=== PATIENT | male | born 1960 | race Caucasian/White ===

== ENCOUNTER 2017-09-28 17:15 | Inpatient (IN) | payer MEDICARE, MEDICAID ==
[~2017-09-28] VITALS: Ht 180.3 cm; Wt 189.6 kg
[2017-09-28 22:08] VITALS: BP 100/64
[2017-09-28 23:12] VITALS: BP 99/52
[2017-09-28] MEDS ORDERED: LEVOFLOXACIN750 MG ORAL (23:23)
[2017-09-28] MEDS ORDERED: COLACE100 MG ORAL (23:23)
[2017-09-28] MEDS ORDERED: FLUCONAZOLE100 MG ORAL (23:23)
[2017-09-28] MEDS ORDERED: RISPERDAL3 MG PO (23:23)
[2017-09-28] MEDS ORDERED: RESTORIL15 MG ORAL (23:23)
[2017-09-28] MEDS ORDERED: CARDIZEM CD240 MG ORAL (23:23)
[2017-09-28] MEDS ORDERED: PROZAC20 MG ORAL (23:23)
[2017-09-28] MEDS ORDERED: MOM30 ML ORAL (23:23)
[2017-09-28] MEDS ORDERED: ELIQUIS5 MG PO (23:23)
[2017-09-28] MEDS ORDERED: TAMSULOSIN HCL0.4 MG ORAL (23:23)
[2017-09-28] MEDS ORDERED: NITROGLYCERIN0.4 MG SL ×2 (23:23)
[2017-09-28] MEDS ORDERED: FENOFIBRATE43 MG ORAL (23:23)
[2017-09-28] MEDS ORDERED: DIGOXIN125 MCG ORAL (23:23)
[2017-09-28] MEDS ORDERED: ACETAMINOPHEN500 M7 PO ×2 (23:23)
[2017-09-28] MEDS ORDERED: ACIDOPHILUS1 EAC7 PO (23:23)
[2017-09-28] MEDS ORDERED: ATIVAN1 MG ORAL (23:23)
[2017-09-28] MEDS ORDERED: LEVOTHYROXINE125 MCG ORAL (23:23)
[2017-09-28] MEDS ORDERED: METRONIDAZOLE500 MG ORAL (23:23)
[2017-09-28] MEDS ORDERED: MYLANTA30 M1 ORAL (23:23)
[2017-09-28] MEDS ORDERED: MULTIVITAMINS1 EAC2 ORAL (23:23)
[2017-09-28] MEDS ORDERED: Milk of Magnesia 30ml Ud ORAL PRN (23:45)
[2017-09-28] MEDS ORDERED: Nitroglycerin Subl 0.4mg tab SL PRN (23:45)
[2017-09-29 00:39] LABS: BASOPHILS % (AUTO) 1.6 % (0.0-2.0); EOSINOPHILS % (AUTO) 6.7 % (0.0-3.0); LYMPHOCYTES % (AUTO) 43.4 % (20.0-45.0); MEAN CORPUSCULAR HEMOGLOBIN 29.5 PG (27.0-31.0); MEAN CORPUSCULAR HGB CONC 30.9 G/DL (32.0-36.0); MEAN CORPUSCULAR VOLUME 95 FL (80-99); MEAN PLATELET VOLUME 5.4 FL (6.5-10.1); MONOCYTES % (AUTO) 9.8 % (1.0-10.0); NEUTROPHILS % (AUTO) 38.6 % (45.0-75.0); PLATELET COUNT 130 K/UL (150-450); RED BLOOD COUNT 4.91 M/UL (4.70-6.10); RED CELL DISTRIBUTION WIDTH 12.9 % (11.6-14.8); WHITE BLOOD COUNT 5.9 K/UL (4.8-10.8)
[2017-09-29 00:40] LABS: ANION GAP 3 mmol/L (5-15); CALCIUM 8.7 MG/DL (8.5-10.1); CARBON DIOXIDE 30 MMOL/L (21-32); CHLORIDE 107 MMOL/L (98-107); CREATININE 0.9 MG/DL (0.55-1.30); GLOMERULAR FILTRATION RATE > 60 mL/min (>60); POTASSIUM 4.4 MMOL/L (3.5-5.1); SODIUM 139 MMOL/L (136-145)
[2017-09-29 04:18] VITALS: BP 105/62
[2017-09-29] MEDS: Levothyroxine 125mcg tab ORAL SCH (06:48)
[2017-09-29] MEDS: LORazepam 1mg tab ORAL PRN (06:48)
[2017-09-29 08:01] VITALS: BP 147/87
[2017-09-29] MEDS: Docusate 100mg cap ORAL SCH ×2 (08:20→17:39)
[2017-09-29] MEDS: metroNIDAZOLE 500mg tab ORAL SCH ×3 (08:20→17:39)
[2017-09-29] MEDS: Fluconazole 100mg tab ORAL SCH (08:21)
[2017-09-29] MEDS: Eliquis 2.5mg tablet ORAL SCH ×2 (08:22→17:39)
[2017-09-29] MEDS: dilTIAZem HCl CD 180mg cap ORAL SCH (08:22)
[2017-09-29] MEDS: Digoxin 0.125mg tab ORAL SCH (08:23)
[2017-09-29] MEDS: Lactobacillus-GG tablet ORAL SCH ×2 (08:30→17:38)
[2017-09-29] MEDS ORDERED: dilTIAZem HCl CD 180mg cap ORAL SCH (09:00)
[2017-09-29] MEDS ORDERED: Digoxin 0.125mg tab ORAL SCH (09:00)
[2017-09-29 12:16] VITALS: BP 131/86
--- NOTE | 2017-09-29 12:43 | Diagnostic Imaging Report ---
Indication: Dyspnea Comparison: None A single view chest radiograph was obtained. Findings: Cardiomediastinal appearance is within normal limits for age. Pulmonary vascularity is appropriate. The diaphragmatic contour is smooth and costophrenic angles are sharp. No pleural effusions are identified. The bones are unremarkable. Impression: No acute findings
--- NOTE | 2017-09-29 13:17 | History and Physical ---
History of Present Illness General Date patient seen: Sep 29, 2017 Time patient seen: 13:16 Reason for Hospitalization: weakness, dehydration, suicidial ideations Present Illness HPI 57y/o male with pmh of Afib (on Eliquis), HTN, HLD, depression, bipolar d/o, morbid obesity, BPH, hypothyroidism who presents with weakness, dehydration and suicidal ideations. Pt resides at SNF and was noted to be increasingly depressed the last few days. As a results he has not been eating and drinking much. He was noted to have suicidal thoughts such as strangling himself. Denies f/c, n/v, d/c, chest pain, SOB, abd pain. Allergies: Coded Allergies: BETA-BLOCKERS (BETA-ADRENERGIC BLOC (Verified Allergy, Unknown, 09/28/17) METOPROLOL (Verified Allergy, Unknown, 09/28/17) MORPHINE (Verified Allergy, Unknown, 09/28/17) VANCOMYCIN (Verified Allergy, Unknown, 09/28/17) Medication History Scheduled Apixaban (Eliquis), 5 MG PO BID, (Reported) Digoxin* (Digoxin*), 125 MCG ORAL DAILY, (Reported) Diltiazem Hcl* (Cardizem Cd*), 360 MG ORAL DAILY, (Reported) Docusate Sodium* (Colace*), 100 MG ORAL BID, (Reported) Fenofibrate,Micronized (Fenofibrate), 54 MG ORAL DAILY, (Reported) Fluconazole (Fluconazole), 200 MG ORAL DAILY, (Reported) Fluoxetine Hcl* (Prozac*), 20 MG ORAL DAILY, (Reported) Lactobacillus Acidophilus (Acidophilus), 1 EACH PO BID, (Reported) Levofloxacin* (Levofloxacin*), 500 MG ORAL DAILY, (Reported) Levothyroxine Sodium* (Levothyroxine Sodium*), 125 MCG ORAL DAILY, (Reported) Metronidazole* (Flagyl*), 500 MG ORAL THREE TIMES A DAY, (Reported) Multivitamins* (Multivitamins*), 1 TAB ORAL DAILY, (Reported) Risperidone (Risperdal), 2 MG PO QHS, (Reported) Tamsulosin Hcl (Tamsulosin Hcl*), 0.4 MG ORAL BEDTIME, (Reported) Scheduled PRN Acetaminophen (Acetaminophen), 650 MG PO for Mild Pain/Temp > 100.5, (Reported) Acetaminophen (Acetaminophen), 650 MG PO for Moderate Pain (Pain Scale 4-6), ( Reported) Al Hydroxide/mg Hydroxide (Mag-Al Liquid), 30 ML ORAL for Abdominal cramps, ( Reported) Lorazepam* (Ativan*), 1 MG ORAL Q6HR PRN for Agitation, (Reported) Magnesium Hydroxide (Milk of Magnesia), 30 ML ORAL DAILY PRN for Constipation, ( Reported) Nitroglycerin (Nitroglycerin), 0.4 MG SL for Prn Chest Pain, (Reported) Temazepam* (Restoril*), 15 MG ORAL BEDTIME PRN for Insomnia, (Reported) Patient History Healthcare decision maker N Resuscitation status Full Code Advanced Directive on File Past Medical/Surgical History Past Medical/Surgical History: (1) Chronic a-fib (2) HTN (hypertension) (3) HLD (hyperlipidemia) (4) Hypothyroid (5) BPH (benign prostatic hyperplasia) (6) Morbid obesity (7) Depressed bipolar disorder Family History Family History: Patient reports no known family medical history. Social History Social History: (1) from (2) denies tobacco, alcohol, drug use Review of Systems Constitutional: Reports: weakness Eye: Reports: no symptoms ENT: Reports: no symptoms Respiratory: Reports: no symptoms Cardiovascular: Reports: no symptoms Gastrointestinal: Reports: no symptoms Genitourinary: Reports: no symptoms Musculoskeletal: Reports: no symptoms Skin: Reports: no symptoms Psychiatric: Reports: depressed feelings, SI Neurological: Reports: no symptoms Endocrine: Reports: no symptoms Hematologic/Lymphatic: Reports: no symptoms All Other Systems: negative except mentioned in HPI Physical Exam Physical Exam Narrative General: alert, cooperative, no distress, appears stated age, morbidly obese Head: normocephalic, without obvious abnormality, atraumatic Eyes: conjunctivae/corneas clear. PERRL, EOM's intact Throat: lips, mucosa, and tongue normal. MMM Neck: supple, symmetrical, trachea midline, and no JVD Lungs: clear to auscultation bilaterally Heart: irregularly irregular, S1, S2 normal, no murmur, click, rub or gallop Abdomen: soft, obese abd, non-tender, non-distended, bowel sounds normal Extremities: extremities normal, atraumatic, no cyanosis or edema Pulses: 2+ and symmetric Skin: skin color, texture, turgor normal; no rashes or lesions Neurologic: grossly normal, no focal deficits Last 24 Hour Vital Signs Date Time Temp Pulse Resp B/P (MAP) Pulse Ox O2 Delivery O2 Flow Rate FiO2 09/29/17 12:16 98.8 84 20 131/86 97 Room Air 84 09/29/17 08:23 78 09/29/17 08:22 78 147/87 09/29/17 08:01 97.7 78 21 147/87 96 Room Air 09/29/17 04:18 97.7 75 19 105/62 94 Nasal Cannula 09/28/17 23:12 97.7 84 20 99/52 93 Room Air 09/28/17 22:08 98.3 74 20 100/64 93 Room Air Intake and Output 09/29/17 09/30/17 19:00 07:00 Intake Total 480 ml Output Total 650 ml Balance -170 ml Intake Oral 480 ml Output Urine Total 650 ml # Voids 3 # Bowel Movements 4 Laboratory Tests Test 09/28/17 23:50 White Blood Count 5.9 K/UL (4.8-10.8) Red Blood Count 4.91 M/UL (4.70-6.10) Hemoglobin 14.5 G/DL (14.2-18.0) Hematocrit 46.9 % (42.0-52.0) Mean Corpuscular Volume 95 FL (80-99) Mean Corpuscular Hemoglobin 29.5 PG (27.0-31.0) Mean Corpuscular Hemoglobin Concent 30.9 G/DL (32.0-36.0) L Red Cell Distribution Width 12.9 % (11.6-14.8) Platelet Count 130 K/UL (150-450) L Mean Platelet Volume 5.4 FL (6.5-10.1) L Neutrophils (%) (Auto) 38.6 % (45.0-75.0) L Lymphocytes (%) (Auto) 43.4 % (20.0-45.0) Monocytes (%) (Auto) 9.8 % (1.0-10.0) Eosinophils (%) (Auto) 6.7 % (0.0-3.0) H Basophils (%) (Auto) 1.6 % (0.0-2.0) Sodium Level 139 MMOL/L (136-145) Potassium Level 4.4 MMOL/L (3.5-5.1) Chloride Level 107 MMOL/L (98-107) Carbon Dioxide Level 30 MMOL/L (21-32) Anion Gap 3 mmol/L (5-15) L Blood Urea Nitrogen 19 mg/dL (7-18) H Creatinine 0.9 MG/DL (0.55-1.30) Estimat Glomerular Filtration Rate > 60 mL/min (>60) Glucose Level 125 MG/DL (74-106) H Calcium Level 8.7 MG/DL (8.5-10.1) Height (Feet): 5 Height (Inches): 11.00 Weight (Pounds): 418 Medications Current Medications Medications (Trade) Dose Ordered Sig/Tashi Route PRN Reason Start Time Stop Time Status Last Admin Dose Admin Acetaminophen (Tylenol) 650 mg Q4H PRN ORAL Mild Pain/Temp > 100.5 09/29/17 01:00 10/29/17 00:59 Al Hydroxide/Mg Hydroxide (Mylanta) 30 ml Q4HR PRN ORAL Abdominal cramps 09/28/17 23:45 10/28/17 23:44 Apixaban (Eliquis) 5 mg BID ORAL 09/29/17 09:00 10/29/17 08:59 09/29/17 08:22 Digoxin (Lanoxin) 0.125 mg DAILY ORAL 09/29/17 09:00 10/29/17 08:59 09/29/17 08:23 Diltiazem HCl (Cardizem CD) 360 mg DAILY ORAL 09/29/17 09:00 10/29/17 08:59 09/29/17 08:22 Docusate Sodium (Colace) 100 mg BID ORAL 09/29/17 09:00 10/29/17 08:59 09/29/17 08:20 Fenofibrate (Tricor) 54 mg DAILY ORAL 09/29/17 09:00 10/29/17 08:59 09/29/17 08:20 Fluconazole (Diflucan) 200 mg DAILY ORAL 09/29/17 09:00 10/01/17 08:59 09/29/17 08:21 Fluoxetine HCl (PROzac) 20 mg DAILY ORAL 09/29/17 09:00 10/29/17 08:59 09/29/17 08:20 Lactobacillus Acidophilus (Culturelle) 1 tab TWICE A DAY ORAL 09/29/17 09:00 10/29/17 08:59 09/29/17 08:30 Levofloxacin (Levaquin) 500 mg DAILY ORAL 09/29/17 09:00 10/01/17 08:59 09/29/17 08:26 Levothyroxine Sodium (Synthroid) 125 mcg ACBREAKFAST ORAL 09/29/17 06:30 10/29/17 06:29 09/29/17 06:48 Lorazepam (Ativan) 1 mg Q6H PRN ORAL Agitation 09/28/17 23:45 10/05/17 23:44 09/29/17 06:48 Magnesium Hydroxide (Mom) 30 ml DAILY PRN ORAL Constipation 09/28/17 23:45 10/28/17 23:44 Metronidazole (Flagyl) 500 mg THREE TIMES A DAY ORAL 09/29/17 09:00 10/01/17 08:59 09/29/17 08:20 Multivitamins (Multivitamins) 1 tab DAILY ORAL 09/29/17 09:00 10/29/17 08:59 09/29/17 08:24 Nitroglycerin (Ntg) 0.4 mg PRN PRN SL Prn Chest Pain 09/28/17 23:45 10/28/17 23:44 Risperidone (RisperDAL) 2 mg QHS ORAL 09/29/17 21:00 10/29/17 20:59 Sodium Chloride 1,000 ml @ 125 mls/hr Q8H IV 09/29/17 00:00 10/29/17 00:00 09/29/17 08:18 Tamsulosin HCl (Flomax) 0.4 mg BEDTIME ORAL 09/29/17 21:00 10/29/17 20:59 Temazepam (Restoril) 15 mg BEDTIME PRN ORAL Insomnia 09/28/17 23:45 10/05/17 23:44 Assessment/Plan Problem List: (1) Suicidal ideations ICD Codes: R45.851 - Suicidal ideations SNOMED: 9841665, 481941056 (2) Depressed bipolar disorder ICD Codes: F31.30 - Bipolar disorder, current episode depressed, mild or moderate severity, unspecified SNOMED: 76161410 (3) Weakness ICD Codes: R53.1 - Weakness SNOMED: 28362300 (4) Dehydration ICD Codes: E86.0 - Dehydration SNOMED: 17285128 (5) Chronic a-fib ICD Codes: I48.2 - Chronic atrial fibrillation SNOMED: 075039627 (6) HTN (hypertension) ICD Codes: I10 - Essential (primary) hypertension SNOMED: 62582119 (7) Hypothyroid ICD Codes: E03.9 - Hypothyroidism, unspecified SNOMED: 52086250 (8) HLD (hyperlipidemia) ICD Codes: E78.5 - Hyperlipidemia, unspecified SNOMED: 42325634 (9) Morbid obesity ICD Codes: E66.01 - Morbid (severe) obesity due to excess calories SNOMED: 917376001, 50779639848110 (10) BPH (benign prostatic hyperplasia) ICD Codes: N40.0 - Benign prostatic hyperplasia without lower urinary tract symptoms SNOMED: 376929503 (11) Acute encephalopathy ICD Codes: G93.40 - Encephalopathy, unspecified SNOMED: 1729296 Status: stable Assessment/Plan Admit inpt Psych consulted 1:1 sitter ordered IVFs ordered as pt not eating/drinking much given SI Cont home meds R/o reversible causes of encephaloapthy Pain control, bowel regimen Supportive care PT eval SW consulted DVT Prophylaxis: SCD,eliquis Code Status: Full Hospital Classification Declaration: Based on this initial evaluation, and depending on the patient's clinical course, I anticipate that this patient will require hospitalization for 2-3 days for acute encephalopathy, SI, dehydration and close respiratory/hemodynamic monitoring. Disposition: Once the patient is stable to leave the hospital, I anticipate the patient will likely be discharged to the following environment: inpatient psych vs SNF I spent 70 minutes on this patient's case, and 39 minutes were dedicated to counseling and/or care coordination. Discussed with patient/family, nursing staff, SW/CM, psych regarding clinical status, treatment course, and disposition planning. Time of note may not reflect time of encounter. José Miguel Lopez M.D. Sep 29, 2017 13:17
[2017-09-29] MEDS ORDERED: Vitamin A&D ud Packet TOPIC SCH (15:30)
[2017-09-29 16:00] VITALS: BP 137/95
[2017-09-29 20:00] VITALS: BP 115/60
[2017-09-29] MEDS ORDERED: Vitamin A&D Oint 2oz Tube TOPIC SCH (20:00)
[2017-09-29] MEDS: Tamsulosin 0.4mg cap ORAL SCH (21:32)
--- NOTE | 2017-09-29 22:15 | Consultation ---
History of Present Illness Present Illness HPI 57 yo male with hx of schizophrenia and mdd was admittd for medical stablization. the pt initially said he was suicidal however during the eval he denies si/hi and did not endorse psychotic sxs . the pt stated that he would like to go back tohis facility then he stated he would like to go to psych unit. the pt is not at imminent dts/dto. the pt was observed being calm and eating. the pts sister was discontinued. the pt will discharged tomorrow Allergies: Coded Allergies: BETA-BLOCKERS (BETA-ADRENERGIC BLOC (Verified Allergy, Unknown, 09/28/17) METOPROLOL (Verified Allergy, Unknown, 09/28/17) MORPHINE (Verified Allergy, Unknown, 09/28/17) VANCOMYCIN (Verified Allergy, Unknown, 09/28/17) Medication History Scheduled Apixaban (Eliquis), 5 MG PO BID, (Reported) Digoxin* (Digoxin*), 125 MCG ORAL DAILY, (Reported) Diltiazem Hcl* (Cardizem Cd*), 360 MG ORAL DAILY, (Reported) Docusate Sodium* (Colace*), 100 MG ORAL BID, (Reported) Fenofibrate,Micronized (Fenofibrate), 54 MG ORAL DAILY, (Reported) Fluconazole (Fluconazole), 200 MG ORAL DAILY, (Reported) Fluoxetine Hcl* (Prozac*), 20 MG ORAL DAILY, (Reported) Lactobacillus Acidophilus (Acidophilus), 1 EACH PO BID, (Reported) Levofloxacin* (Levofloxacin*), 500 MG ORAL DAILY, (Reported) Levothyroxine Sodium* (Levothyroxine Sodium*), 125 MCG ORAL DAILY, (Reported) Metronidazole* (Flagyl*), 500 MG ORAL THREE TIMES A DAY, (Reported) Multivitamins* (Multivitamins*), 1 TAB ORAL DAILY, (Reported) Risperidone (Risperdal), 2 MG PO QHS, (Reported) Tamsulosin Hcl (Tamsulosin Hcl*), 0.4 MG ORAL BEDTIME, (Reported) Scheduled PRN Acetaminophen (Acetaminophen), 650 MG PO for Mild Pain/Temp > 100.5, (Reported) Acetaminophen (Acetaminophen), 650 MG PO for Moderate Pain (Pain Scale 4-6), ( Reported) Al Hydroxide/mg Hydroxide (Mag-Al Liquid), 30 ML ORAL for Abdominal cramps, ( Reported) Lorazepam* (Ativan*), 1 MG ORAL Q6HR PRN for Agitation, (Reported) Magnesium Hydroxide (Milk of Magnesia), 30 ML ORAL DAILY PRN for Constipation, ( Reported) Nitroglycerin (Nitroglycerin), 0.4 MG SL for Prn Chest Pain, (Reported) Temazepam* (Restoril*), 15 MG ORAL BEDTIME PRN for Insomnia, (Reported) Patient History Limited by: medical condition History Provided By: Patient, Medical Record, PMD Healthcare decision maker N Resuscitation status Full Code Advanced Directive on File Past Medical/Surgical History Past Medical/Surgical History: (1) Dehydration (2) Weakness Review of Systems Psychiatric: Reports: prior hx, depressed feelings Physical Exam General Appearance: no apparent distress, alert, morbidly obese Neurologic: alert, oriented x 3, responsive, normal mood/affect Last 24 Hour Vital Signs Date Time Temp Pulse Resp B/P (MAP) Pulse Ox O2 Delivery O2 Flow Rate FiO2 09/29/17 20:00 97.5 70 20 115/60 94 Room Air 09/29/17 16:00 97.9 71 22 137/95 97 Room Air 71 09/29/17 12:16 98.8 84 20 131/86 97 Room Air 84 09/29/17 08:23 78 09/29/17 08:22 78 147/87 09/29/17 08:01 97.7 78 21 147/87 96 Room Air 09/29/17 04:18 97.7 75 19 105/62 94 Nasal Cannula 09/28/17 23:12 97.7 84 20 99/52 93 Room Air Intake and Output 09/29/17 09/30/17 19:00 07:00 Intake Total 1520 ml 240 ml Output Total 1750 ml Balance -230 ml 240 ml Intake Oral 1520 ml 240 ml Output Urine Total 1750 ml # Voids 7 # Bowel Movements 5 Laboratory Tests Test 09/28/17 23:50 White Blood Count 5.9 K/UL (4.8-10.8) Red Blood Count 4.91 M/UL (4.70-6.10) Hemoglobin 14.5 G/DL (14.2-18.0) Hematocrit 46.9 % (42.0-52.0) Mean Corpuscular Volume 95 FL (80-99) Mean Corpuscular Hemoglobin 29.5 PG (27.0-31.0) Mean Corpuscular Hemoglobin Concent 30.9 G/DL (32.0-36.0) L Red Cell Distribution Width 12.9 % (11.6-14.8) Platelet Count 130 K/UL (150-450) L Mean Platelet Volume 5.4 FL (6.5-10.1) L Neutrophils (%) (Auto) 38.6 % (45.0-75.0) L Lymphocytes (%) (Auto) 43.4 % (20.0-45.0) Monocytes (%) (Auto) 9.8 % (1.0-10.0) Eosinophils (%) (Auto) 6.7 % (0.0-3.0) H Basophils (%) (Auto) 1.6 % (0.0-2.0) Sodium Level 139 MMOL/L (136-145) Potassium Level 4.4 MMOL/L (3.5-5.1) Chloride Level 107 MMOL/L (98-107) Carbon Dioxide Level 30 MMOL/L (21-32) Anion Gap 3 mmol/L (5-15) L Blood Urea Nitrogen 19 mg/dL (7-18) H Creatinine 0.9 MG/DL (0.55-1.30) Estimat Glomerular Filtration Rate > 60 mL/min (>60) Glucose Level 125 MG/DL (74-106) H Calcium Level 8.7 MG/DL (8.5-10.1) Height (Feet): 5 Height (Inches): 11.00 Weight (Pounds): 418 Medications Current Medications Medications (Trade) Dose Ordered Sig/Tashi Route PRN Reason Start Time Stop Time Status Last Admin Dose Admin Acetaminophen (Tylenol) 650 mg Q4H PRN ORAL Mild Pain/Temp > 100.5 09/29/17 01:00 10/29/17 00:59 Al Hydroxide/Mg Hydroxide (Mylanta) 30 ml Q4HR PRN ORAL Abdominal cramps 09/28/17 23:45 10/28/17 23:44 Apixaban (Eliquis) 5 mg BID ORAL 09/29/17 09:00 10/29/17 08:59 09/29/17 17:39 Digoxin (Lanoxin) 0.125 mg DAILY ORAL 09/29/17 09:00 10/29/17 08:59 09/29/17 08:23 Diltiazem HCl (Cardizem CD) 360 mg DAILY ORAL 09/29/17 09:00 10/29/17 08:59 09/29/17 08:22 Docusate Sodium (Colace) 100 mg BID ORAL 09/29/17 09:00 10/29/17 08:59 09/29/17 17:39 Fenofibrate (Tricor) 54 mg DAILY ORAL 09/29/17 09:00 10/29/17 08:59 09/29/17 08:20 Fluconazole (Diflucan) 200 mg DAILY ORAL 09/29/17 09:00 10/01/17 08:59 09/29/17 08:21 Fluoxetine HCl (PROzac) 20 mg DAILY ORAL 09/29/17 09:00 10/29/17 08:59 09/29/17 08:20 Lactobacillus Acidophilus (Culturelle) 1 tab TWICE A DAY ORAL 09/29/17 09:00 10/29/17 08:59 09/29/17 17:38 Levofloxacin (Levaquin) 500 mg DAILY ORAL 09/30/17 09:00 10/01/17 08:59 Levothyroxine Sodium (Synthroid) 125 mcg ACBREAKFAST ORAL 09/29/17 06:30 10/29/17 06:29 09/29/17 06:48 Lorazepam (Ativan) 1 mg Q6H PRN ORAL Agitation 09/28/17 23:45 10/05/17 23:44 09/29/17 06:48 Magnesium Hydroxide (Mom) 30 ml DAILY PRN ORAL Constipation 09/28/17 23:45 10/28/17 23:44 Metronidazole (Flagyl) 500 mg THREE TIMES A DAY ORAL 09/29/17 09:00 10/01/17 08:59 09/29/17 17:39 Multivitamins (Multivitamins) 1 tab DAILY ORAL 09/29/17 09:00 10/29/17 08:59 09/29/17 08:24 Nitroglycerin (Ntg) 0.4 mg PRN PRN SL Prn Chest Pain 09/28/17 23:45 10/28/17 23:44 Risperidone (RisperDAL) 2 mg QHS ORAL 09/29/17 21:00 10/29/17 20:59 09/29/17 21:32 Tamsulosin HCl (Flomax) 0.4 mg BEDTIME ORAL 09/29/17 21:00 10/29/17 20:59 09/29/17 21:32 Temazepam (Restoril) 15 mg BEDTIME PRN ORAL Insomnia 09/28/17 23:45 10/05/17 23:44 Assessment/Plan Status: stable, progressing Assessment/Plan mdd schizphrenia -cont current meds -dc to Jade Carter M.D. Sep 29, 2017 22:15
[2017-09-30] VITALS (8 sets, daily range): BP systolic 103–173; BP diastolic 60–112
[2017-09-30] MEDS: Levothyroxine 125mcg tab ORAL SCH (05:54)
[2017-09-30] MEDS ORDERED: Levofloxacin 500mg tab ORAL SCH (09:00)
[2017-09-30] MEDS: Fluconazole 100mg tab ORAL SCH (09:21)
[2017-09-30] MEDS: dilTIAZem HCl CD 180mg cap ORAL SCH (09:21)
[2017-09-30] MEDS: metroNIDAZOLE 500mg tab ORAL SCH ×3 (09:21→17:07)
[2017-09-30] MEDS: Lactobacillus-GG tablet ORAL SCH ×2 (09:22→17:08)
[2017-09-30] MEDS: Docusate 100mg cap ORAL SCH ×2 (09:22→17:08)
[2017-09-30] MEDS: Eliquis 2.5mg tablet ORAL SCH ×2 (09:22→17:08)
[2017-09-30] MEDS: Digoxin 0.125mg tab ORAL SCH (09:22)
[2017-09-30 10:12] LABS: BASOPHILS % (AUTO) 0.9 % (0.0-2.0); EOSINOPHILS % (AUTO) 4.9 % (0.0-3.0); LYMPHOCYTES % (AUTO) 32.1 % (20.0-45.0); MEAN CORPUSCULAR HEMOGLOBIN 30.9 PG (27.0-31.0); MEAN CORPUSCULAR HGB CONC 32.3 G/DL (32.0-36.0); MEAN CORPUSCULAR VOLUME 96 FL (80-99); MEAN PLATELET VOLUME 5.6 FL (6.5-10.1); MONOCYTES % (AUTO) 7.4 % (1.0-10.0); NEUTROPHILS % (AUTO) 54.8 % (45.0-75.0); PLATELET COUNT 148 K/UL (150-450); RED BLOOD COUNT 4.76 M/UL (4.70-6.10); RED CELL DISTRIBUTION WIDTH 13.6 % (11.6-14.8); WHITE BLOOD COUNT 4.7 K/UL (4.8-10.8)
[2017-09-30 10:56] LABS: FOLIC ACID 18.8 NG/ML (3.1-17.5)
[2017-09-30 11:05] LABS: ANION GAP 6 mmol/L (5-15); CALCIUM 8.6 MG/DL (8.5-10.1); CARBON DIOXIDE 28 MMOL/L (21-32); CHLORIDE 106 MMOL/L (98-107); CREATININE 0.8 MG/DL (0.55-1.30); GLOMERULAR FILTRATION RATE > 60 mL/min (>60); POTASSIUM 3.9 MMOL/L (3.5-5.1); SODIUM 140 MMOL/L (136-145); THYROID STIMULATING HORMONE 3.242 uiU/mL (0.360-3.740)
--- NOTE | 2017-09-30 19:04 | General Progress Note ---
Assessment/Plan Problem List: (1) Suicidal ideations ICD Codes: R45.851 - Suicidal ideations SNOMED: 0460168, 322461331 (2) Depressed bipolar disorder ICD Codes: F31.30 - Bipolar disorder, current episode depressed, mild or moderate severity, unspecified SNOMED: 00370755 (3) Weakness ICD Codes: R53.1 - Weakness SNOMED: 17123320 (4) Dehydration ICD Codes: E86.0 - Dehydration SNOMED: 58296760 (5) Chronic a-fib ICD Codes: I48.2 - Chronic atrial fibrillation SNOMED: 909175654 (6) HTN (hypertension) ICD Codes: I10 - Essential (primary) hypertension SNOMED: 15073108 (7) Hypothyroid ICD Codes: E03.9 - Hypothyroidism, unspecified SNOMED: 19387273 (8) HLD (hyperlipidemia) ICD Codes: E78.5 - Hyperlipidemia, unspecified SNOMED: 18358659 (9) Morbid obesity ICD Codes: E66.01 - Morbid (severe) obesity due to excess calories SNOMED: 354158308, 16465887089664 (10) BPH (benign prostatic hyperplasia) ICD Codes: N40.0 - Benign prostatic hyperplasia without lower urinary tract symptoms SNOMED: 474398413 (11) Acute encephalopathy ICD Codes: G93.40 - Encephalopathy, unspecified SNOMED: 4398825 Status: stable Assessment/Plan Psych consulted--pt is cleared for transfer back to SNF D/c 1:1 sitter D/c IVFs as pt now eating and drinking well Cont home meds Pain control, bowel regimen Supportive care PT eval SW consulted DC to SNF once bed confirmed DVT Prophylaxis: SCD, eliquis Code Status: Full Hospital Classification Declaration: Based on this initial evaluation, and depending on the patient's clinical course, I anticipate that this patient will require hospitalization for 0-1 days for acute encephalopathy, SI, dehydration and close respiratory/hemodynamic monitoring. Disposition: Once the patient is stable to leave the hospital, I anticipate the patient will likely be discharged to the following environment: back to SNF Discussed with patient/family, nursing staff, SW/CM, psych regarding clinical status, treatment course, and disposition planning. Time of note may not reflect time of encounter. Subjective Date patient seen: Oct 01, 2017 Time patient seen: 13:00 ROS Limited/Unobtainable: No Constitutional: Reports: no symptoms HEENT: Reports: no symptoms Cardiovascular: Reports: no symptoms Respiratory: Reports: no symptoms Gastrointestinal/Abdominal: Reports: no symptoms Genitourinary: Reports: no symptoms Neurologic/Psychiatric: Reports: no symptoms Endocrine: Reports: no symptoms Hematologic/Lymphatic: Reports: no symptoms Allergies: Coded Allergies: BETA-BLOCKERS (BETA-ADRENERGIC BLOC (Verified Allergy, Unknown, 09/28/17) METOPROLOL (Verified Allergy, Unknown, 09/28/17) MORPHINE (Verified Allergy, Unknown, 09/28/17) VANCOMYCIN (Verified Allergy, Unknown, 09/28/17) All Systems: reviewed and negative except above Subjective No acute o/n events Seen by psych who has cleared. States ok to transfer to SNF Pt doing well. Denies depression, SI, HI, AH, VH Objective Last 24 Hour Vital Signs Date Time Temp Pulse Resp B/P (MAP) Pulse Ox O2 Delivery O2 Flow Rate FiO2 09/30/17 16:00 97.0 73 18 156/98 Room Air 09/30/17 13:06 97.4 88 22 135/89 97 Room Air 09/30/17 09:22 94 09/30/17 09:21 94 143/97 09/30/17 09:12 98.1 20 143/97 96 Room Air 09/30/17 08:15 96.6 94 21 173/112 95 Room Air 09/30/17 04:00 96.6 89 18 130/70 95 Room Air 09/30/17 00:00 97.9 72 20 119/71 97 Nasal Cannula 2.0 09/29/17 20:00 97.5 70 20 115/60 94 Room Air Intake and Output 09/30/17 10/01/17 19:00 07:00 Intake Total 960 ml Output Total 400 ml Balance 560 ml Intake Oral 960 ml Output Urine Total 400 ml # Voids 2 # Bowel Movements 2 Laboratory Tests 09/30/17 09:45: White Blood Count 4.7L, Red Blood Count 4.76, Hemoglobin 14.7, Hematocrit 45.6, Mean Corpuscular Volume 96, Mean Corpuscular Hemoglobin 30.9, Mean Corpuscular Hemoglobin Concent 32.3, Red Cell Distribution Width 13.6, Platelet Count 148L, Mean Platelet Volume 5.6L, Neutrophils (%) (Auto) 54.8, Lymphocytes (%) (Auto) 32.1, Monocytes (%) (Auto) 7.4, Eosinophils (%) (Auto) 4.9H, Basophils (%) (Auto ) 0.9, Sodium Level 140, Potassium Level 3.9, Chloride Level 106, Carbon Dioxide Level 28, Anion Gap 6, Blood Urea Nitrogen 11, Creatinine 0.8, Estimat Glomerular Filtration Rate > 60, Glucose Level 144H, Calcium Level 8.6, Vitamin B12 Level 277, Vitamin D 25-Hydroxy [Pending], 25-Hydroxy Vitamin D2 [Pending], 25-Hydroxy Vitamin D3 [Pending], Folate 18.8H, Thyroid Stimulating Hormone (TSH ) 3.242 Height (Feet): 5 Height (Inches): 11.00 Weight (Pounds): 418 Objective General: alert, cooperative, no distress, appears stated age, morbidly obese Head: normocephalic, without obvious abnormality, atraumatic Eyes: conjunctivae/corneas clear. PERRL, EOM's intact Throat: lips, mucosa, and tongue normal. MMM Neck: supple, symmetrical, trachea midline, and no JVD Lungs: clear to auscultation bilaterally Heart: regular rate and rhythm, S1, S2 normal, no murmur, click, rub or gallop Abdomen: soft, non-tender, non-distended, bowel sounds normal; no masses or organomegaly Extremities: extremities normal, atraumatic, no cyanosis or edema Pulses: 2+ and symmetric Skin: skin color, texture, turgor normal; no rashes or lesions Neurologic: grossly normal, no focal deficits José Miguel Lopez M.D. Sep 30, 2017 19:04
[2017-09-30] MEDS: Tamsulosin 0.4mg cap ORAL SCH (20:05)
[2017-10-01] VITALS: BP 107/67
[2017-10-01 04:00] VITALS: BP 114/63
[2017-10-01] MEDS: Levothyroxine 125mcg tab ORAL SCH (06:17)
[2017-10-01 07:59] VITALS: BP 145/80
[2017-10-01] MEDS: Docusate 100mg cap ORAL SCH ×2 (08:34→17:34)
[2017-10-01] MEDS: dilTIAZem HCl CD 180mg cap ORAL SCH (08:35)
[2017-10-01] MEDS: Lactobacillus-GG tablet ORAL SCH ×2 (08:36→17:35)
[2017-10-01] MEDS: Eliquis 2.5mg tablet ORAL SCH ×2 (08:36→17:35)
[2017-10-01] MEDS: Digoxin 0.125mg tab ORAL SCH (08:37)
[2017-10-01 12:15] VITALS: BP 119/76
[2017-10-01 16:26] VITALS: BP 141/82
[2017-10-01] MEDS: LORazepam 1mg tab ORAL PRN (18:00)
[2017-10-01] MEDS ORDERED: TYLENOL325 MG ORAL (18:49)
--- NOTE | 2017-10-01 23:20 | Discharge Summary ---
Discharge Summary Hospital Course Date of Admission Sep 28, 2017 at 21:10 Date of Discharge Oct 01, 2017 at 20:20 Admitting Diagnosis Encephalopathy, weakness, dehydration Reason for Hospitalization: Encephalopathy, dehydration HPI 57y/o male with pmh of Afib (on Eliquis), HTN, HLD, depression, bipolar d/o, morbid obesity, BPH, hypothyroidism who presents with weakness, dehydration and suicidal ideations. Pt resides at SNF and was noted to be increasingly depressed the last few days. As a results he has not been eating and drinking much. He was noted to have suicidal thoughts such as strangling himself. Denies f/c, n/v, d/c, chest pain, SOB, abd pain. Consultations Psychiatry Hospital Course Pt was admitted and underwent workup for reversible causes of encephalopathy which was unremarkable. Pt's mental status improved. He was seen by psychiatry and he was cleared for discharge. He denied depressed mood, suicidal ideations, auditory/visual hallucinations prior to d/c. Pt was ultimately discharged to SNF. Discharge Medications Continued Medications: Acetaminophen (Acetaminophen) 500 Mg Capsule 650 MG PO Q4HR PRN for Mild Pain/Temp > 100.5, CAP Acetaminophen (Acetaminophen) 500 Mg Capsule 650 MG PO PRN for Moderate Pain (Pain Scale 4-6), CAP Al Hydroxide/mg Hydroxide (Mag-Al Liquid) 30 Ml Oral.susp 30 ML ORAL PRN for Abdominal cramps, ML Apixaban (Eliquis) 5 Mg Tablet 5 MG PO BID, TAB Digoxin* (Digoxin*) 125 Mcg Tablet 125 MCG ORAL DAILY, TAB Diltiazem Hcl* (Cardizem Cd*) 240 Mg Cap.er.24h 360 MG ORAL DAILY, #30 CAP 0 Refills Docusate Sodium* (Colace*) 100 Mg Capsule 100 MG ORAL BID, CAP Fenofibrate,Micronized (Fenofibrate) 43 Mg Capsule 54 MG ORAL DAILY, #30 TAB 0 Refills Fluconazole (Fluconazole) 100 Mg Tablet 200 MG ORAL DAILY, #7 TAB 0 Refills Fluoxetine Hcl* (Prozac*) 20 Mg Capsule 20 MG ORAL DAILY, CAP Lactobacillus Acidophilus (Acidophilus) 1 Each Tablet 1 EACH PO DAILY, TAB Levofloxacin* (Levofloxacin*) 750 Mg Tablet 750 MG ORAL DAILY, TAB Levothyroxine Sodium* (Levothyroxine Sodium*) 125 Mcg Tablet 125 MCG ORAL DAILY, TAB Take in the morning on an empty stomach, at least 30 minutes before food. Lorazepam* (Ativan*) 1 Mg Tablet 1 MG ORAL Q6HR PRN for Agitation, TAB Magnesium Hydroxide (Milk of Magnesia) 400 Mg/5 Ml Oral.susp 30 ML ORAL DAILY PRN for Constipation, ML Metronidazole* (Flagyl*) 500 Mg Tablet 500 MG ORAL THREE TIMES A DAY, TAB 0 Refills Multivitamins* (Multivitamins*) 1 Each Tablet 1 TAB ORAL DAILY, TAB 0 Refills Nitroglycerin (Nitroglycerin) 0.4 Mg Tab.subl 0.4 MG SL 1 tab ever 5 mins x3 PRN for Prn Chest Pain, TAB Risperidone (Risperdal) 3 Mg Tablet 2 MG PO QHS, TAB Tamsulosin Hcl (Tamsulosin Hcl*) 0.4 Mg Cap.er.24h 0.4 MG ORAL BEDTIME, CAP Temazepam* (Restoril*) 15 Mg Capsule 15 MG ORAL BEDTIME PRN for Insomnia, CAP Discontinued Medications: Acetaminophen (Tylenol) 325 Mg Tablet 325 MG ORAL Q6H PRN for Prn Pain/Headache/Temp > 101, #30 TAB 0 Refills Discharge Condition Upon Discharge: stable Discharge Disposition Patient was discharged to SNF/Subacute Facility(03) Discharge Diagnoses: (1) Acute encephalopathy (2) Suicidal ideations (3) Depressed bipolar disorder (4) Dehydration (5) Weakness (6) Morbid obesity (7) HTN (hypertension) (8) Hypothyroid (9) HLD (hyperlipidemia) (10) NILDA (obstructive sleep apnea) (11) History of right above knee amputation (12) BPH (benign prostatic hyperplasia) (13) Chronic a-fib José Mgiuel Lopez M.D. Oct 01, 2017 23:20
--- NOTE | 2017-10-01 23:32 | General Progress Note ---
Assessment/Plan Status: stable, progressing Subjective Date patient seen: Sep 30, 2017 Neurologic/Psychiatric: Reports: anxiety, depressed, emotional problems Allergies: Coded Allergies: BETA-BLOCKERS (BETA-ADRENERGIC BLOC (Verified Allergy, Unknown, 09/28/17) METOPROLOL (Verified Allergy, Unknown, 09/28/17) MORPHINE (Verified Allergy, Unknown, 09/28/17) VANCOMYCIN (Verified Allergy, Unknown, 09/28/17) Objective Last 24 Hour Vital Signs Date Time Temp Pulse Resp B/P (MAP) Pulse Ox O2 Delivery O2 Flow Rate FiO2 10/01/17 16:26 98.9 71 20 141/82 95 Room Air 10/01/17 12:15 98.6 88 23 119/76 97 Room Air 10/01/17 08:37 84 10/01/17 08:35 84 145/80 10/01/17 07:59 97.9 84 21 145/80 98 Room Air 10/01/17 04:00 97.7 64 20 114/63 97 Nasal Cannula 2.0 10/01/17 00:00 97.5 68 21 107/67 96 Room Air Intake and Output 10/01/17 10/02/17 19:00 07:00 Intake Total 1320 ml Output Total 850 ml Balance 470 ml Intake Oral 1320 ml Output Urine Total 850 ml # Voids 4 # Bowel Movements 1 Height (Feet): 5 Height (Inches): 11.00 Weight (Pounds): 418 General Appearance: no apparent distress, alert, morbidly obese Neurologic: alert, oriented x 3, responsive, depressed affect Jade Mcghee M.D. Oct 01, 2017 23:32
--- NOTE | 2017-10-08 16:14 | Cardiology Report ---
APPROVED REPORT EKG Measurement Heart [id number] Atrial fibrillation Abnormal ECG
== END 2017-10-01 20:20 | DRG 640 ==
LOC: 4E 21:10
DX: E86.0 Dehydration (principal); G93.40 Encephalopathy, unspecified; R45.851 Suicidal ideations; Z68.43 Body mass index [BMI] 50.0-59.9, adult; F31.30 Bipolar disorder, current episode depressed, mild or moderate severity, unspecified; E66.01 Morbid (severe) obesity due to excess calories; I10 Essential (primary) hypertension; Z79.01 Long term (current) use of anticoagulants; E78.5 Hyperlipidemia, unspecified; N40.0 Benign prostatic hyperplasia without lower urinary tract symptoms; E03.9 Hypothyroidism, unspecified; Z88.6 Allergy status to analgesic agent; Z88.1 Allergy status to other antibiotic agents; Z88.8 Allergy status to other drugs, medicaments and biological substances; I48.2 Chronic atrial fibrillation; R53.1 Weakness; F20.9 Schizophrenia, unspecified
CPT/HCPCS: 36415; 71010; 80048; 82306; 82607; 82746; 84443; 85025; 87081; 93005

== ENCOUNTER 2017-10-04 14:41 | Inpatient (IN) | payer MEDICAID, MEDICARE ==
[~2017-10-04] VITALS: Ht 175.3 cm; Wt 190.1 kg
[~2017-10-04 14:41] MED LIST: ACETAMINOPHEN500 M7 PO; ACIDOPHILUS1 EAC7 PO; ATIVAN1 MG ORAL; CARDIZEM CD240 MG ORAL; COLACE100 MG ORAL; DIGOXIN125 MCG ORAL; ELIQUIS5 MG PO; FENOFIBRATE43 MG ORAL; FLUCONAZOLE100 MG ORAL; LEVOFLOXACIN750 MG ORAL; LEVOTHYROXINE125 MCG ORAL; METRONIDAZOLE500 MG ORAL; MOM30 ML ORAL; MULTIVITAMINS1 EAC2 ORAL; MYLANTA30 M1 ORAL; NITROGLYCERIN0.4 MG SL; PROZAC20 MG ORAL; RESTORIL15 MG ORAL; RISPERDAL3 MG PO; TAMSULOSIN HCL0.4 MG ORAL; TYLENOL325 MG ORAL
[2017-10-05 02:00] VITALS: BP 136/64
[2017-10-05] MEDS ORDERED: MAALOX ADVANCE770 ML PO (03:03)
[2017-10-05] MEDS ORDERED: HYDROCORTISONE-30 GM TOPIC (03:03)
[2017-10-05] MEDS ORDERED: Nitroglycerin Subl 0.4mg tab SL PRN (05:15)
[2017-10-05] MEDS ORDERED: Mylanta II UD 30ml ORAL PRN (05:15)
[2017-10-05] MEDS ORDERED: Hydrocortisone 1% Cr 30gm TOPIC PRN (05:15)
[2017-10-05] MEDS: Levothyroxine 125mcg tab ORAL SCH (06:29)
[2017-10-05 07:17] LABS: BASOPHILS % (AUTO) 0.7 % (0.0-2.0); EOSINOPHILS % (AUTO) 5.6 % (0.0-3.0); LYMPHOCYTES % (AUTO) 33.4 % (20.0-45.0); MEAN CORPUSCULAR HEMOGLOBIN 32.1 PG (27.0-31.0); MEAN CORPUSCULAR HGB CONC 33.6 G/DL (32.0-36.0); MEAN CORPUSCULAR VOLUME 96 FL (80-99); MEAN PLATELET VOLUME 5.8 FL (6.5-10.1); MONOCYTES % (AUTO) 8.7 % (1.0-10.0); NEUTROPHILS % (AUTO) 51.6 % (45.0-75.0); PLATELET COUNT 141 K/UL (150-450); RED BLOOD COUNT 4.58 M/UL (4.70-6.10); RED CELL DISTRIBUTION WIDTH 13.2 % (11.6-14.8); WHITE BLOOD COUNT 4.8 K/UL (4.8-10.8)
[2017-10-05 08:00] VITALS: BP 146/89
[2017-10-05] MEDS: Digoxin 0.125mg tab ORAL SCH (10:04)
[2017-10-05] MEDS: dilTIAZem HCl CD 120mg cap ORAL SCH (10:04)
[2017-10-05] MEDS: Eliquis 2.5mg tablet ORAL SCH ×2 (10:05→17:59)
[2017-10-05] MEDS: dilTIAZem HCl CD 240mg cap ORAL SCH (10:06)
[2017-10-05] MEDS: Docusate 100mg cap ORAL SCH ×2 (10:06→17:58)
[2017-10-05] MEDS: LORazepam 1mg tab ORAL PRN ×2 (10:35→18:17)
--- NOTE | 2017-10-05 11:10 | Diagnostic Imaging Report ---
Indication: cough Technique: One view of the chest Comparison: 09/29/2017 Findings: By habitus limits evaluation. Patient is rotated to the right. The lungs and pleural spaces are clear. The heart is upper limits of normal in size. There is no significant interim change Impression: No acute process
[2017-10-05 12:00] VITALS: BP 138/80
[2017-10-05 16:00] VITALS: BP 130/86
--- NOTE | 2017-10-05 16:02 | History and Physical ---
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 Pt recently admitted for similar symptoms including SI. He was seen by psych and cleared for d/c back to SNF. Pt was noted to be increasingly depressed the last few days. As a results he has not been eating and drinking much. Pt states that he has been hearing voices telling him to hurt himself so he was noted to be hitting himself.. Denies f/c, n/v, d/c, chest pain, SOB, abd pain. Allergies: Coded Allergies: BETA-BLOCKERS (BETA-ADRENERGIC BLOC (Verified Allergy, Unknown, 09/28/17) METOPROLOL (Verified Allergy, Unknown, 09/28/17) MORPHINE (Verified Allergy, Unknown, 09/28/17) VANCOMYCIN (Verified Allergy, Unknown, 09/28/17) Medication History Scheduled Apixaban (Eliquis), 5 MG PO BID, (Reported) Digoxin* (Digoxin*), 125 MCG ORAL DAILY, (Reported) Diltiazem Hcl* (Cardizem Cd*), 360 MG ORAL DAILY, (Reported) Docusate Sodium* (Colace*), 100 MG ORAL BID, (Reported) Fenofibrate,Micronized (Fenofibrate), 54 MG ORAL DAILY, (Reported) Fluconazole (Fluconazole), 200 MG ORAL DAILY, (Reported) Fluoxetine Hcl* (Prozac*), 20 MG ORAL DAILY, (Reported) Lactobacillus Acidophilus (Acidophilus), 1 EACH PO DAILY, (Reported) Levofloxacin* (Levofloxacin*), 750 MG ORAL DAILY, (Reported) Levothyroxine Sodium* (Levothyroxine Sodium*), 125 MCG ORAL DAILY, (Reported) Metronidazole* (Flagyl*), 500 MG ORAL THREE TIMES A DAY, (Reported) Multivitamins* (Multivitamins*), 1 TAB ORAL DAILY, (Reported) Risperidone (Risperdal), 2 MG PO QHS, (Reported) Tamsulosin Hcl (Tamsulosin Hcl*), 0.4 MG ORAL BEDTIME, (Reported) Scheduled PRN Acetaminophen (Acetaminophen), 650 MG PO Q4HR PRN for Mild Pain/Temp > 100.5, ( Reported) Acetaminophen (Acetaminophen), 650 MG PO for Moderate Pain (Pain Scale 4-6), ( Reported) Al Hydroxide/mg Hydroxide (Mag-Al Liquid), 30 ML ORAL for Abdominal cramps, ( Reported) Hydrocortisone/Aloe Vera 1%* (Hydrocortisone-Aloe 1% Cream*), 1 APPLIC TOPIC for itching/body rashes, (Reported) Lorazepam* (Ativan*), 1 MG ORAL Q6HR PRN for Agitation, (Reported) Mag Hydrox/Al Hydrox/Simeth (Maalox Advanced Suspension), 30 ML PO regular strength PRN for Abdominal cramps, (Reported) Magnesium Hydroxide (Milk of Magnesia), 30 ML ORAL DAILY PRN for Constipation, ( Reported) Nitroglycerin (Nitroglycerin), 0.4 MG SL 1 tab ever 5 mins x3 PRN for Prn Chest Pain, (Reported) Temazepam* (Restoril*), 15 MG ORAL BEDTIME PRN for Insomnia, (Reported) Discontinued Medications Acetaminophen (Tylenol), 325 MG ORAL Q6H PRN for Prn Pain/Headache/Temp > 101, ( Reported) Discontinued Reason: Therapy completed Patient History History Provided By: Patient, Medical Record Healthcare decision maker Resuscitation status Advanced Directive on File Past Medical/Surgical History Past Medical/Surgical History: (1) Chronic a-fib (2) BPH (benign prostatic hyperplasia) (3) NILDA (obstructive sleep apnea) (4) History of right above knee amputation (5) HTN (hypertension) (6) Hypothyroid (7) HLD (hyperlipidemia) (8) Morbid obesity Family History Family History: Patient reports no known family medical history. Social History Social History: (1) lives at [facility] Review of Systems Constitutional: Reports: no symptoms Eye: Reports: no symptoms ENT: Reports: no symptoms Respiratory: Reports: no symptoms Cardiovascular: Reports: no symptoms Gastrointestinal: Reports: no symptoms Genitourinary: Reports: no symptoms Musculoskeletal: Reports: no symptoms Skin: Reports: no symptoms Psychiatric: Reports: no symptoms, depressed feelings, hallucinations Neurological: Reports: no symptoms Endocrine: Reports: no symptoms Hematologic/Lymphatic: Reports: no symptoms Physical Exam Physical Exam Narrative General: alert, cooperative, no distress, appears stated age, morbid obesity, depressed affect Head: normocephalic, without obvious abnormality, atraumatic Eyes: conjunctivae/corneas clear. PERRL, EOM's intact Throat: lips, mucosa, and tongue normal. MMM Neck: supple, symmetrical, trachea midline, and no JVD Lungs: clear to auscultation bilaterally Heart: regular rate and rhythm, S1, S2 normal, no murmur, click, rub or gallop Abdomen: soft, non-tender, non-distended, bowel sounds normal; no masses or organomegaly Extremities: +R AKA stump c/d/i Pulses: 2+ and symmetric Skin: skin color, texture, turgor normal; no rashes or lesions Neurologic: grossly normal, no focal deficits Last 24 Hour Vital Signs Date Time Temp Pulse Resp B/P (MAP) Pulse Ox O2 Delivery O2 Flow Rate FiO2 10/05/17 12:00 97.8 20 138/80 98 Room Air 10/05/17 10:06 87 146/89 10/05/17 10:04 87 146/89 10/05/17 10:04 87 10/05/17 08:00 98.0 20 146/89 98 Room Air 10/05/17 02:00 97.7 87 20 136/64 99 Room Air 2.0 Laboratory Tests Test 10/05/17 05:00 White Blood Count 4.8 K/UL (4.8-10.8) Red Blood Count 4.58 M/UL (4.70-6.10) L Hemoglobin 14.7 G/DL (14.2-18.0) Hematocrit 43.8 % (42.0-52.0) Mean Corpuscular Volume 96 FL (80-99) Mean Corpuscular Hemoglobin 32.1 PG (27.0-31.0) H Mean Corpuscular Hemoglobin Concent 33.6 G/DL (32.0-36.0) Red Cell Distribution Width 13.2 % (11.6-14.8) Platelet Count 141 K/UL (150-450) L Mean Platelet Volume 5.8 FL (6.5-10.1) L Neutrophils (%) (Auto) 51.6 % (45.0-75.0) Lymphocytes (%) (Auto) 33.4 % (20.0-45.0) Monocytes (%) (Auto) 8.7 % (1.0-10.0) Eosinophils (%) (Auto) 5.6 % (0.0-3.0) H Basophils (%) (Auto) 0.7 % (0.0-2.0) Digoxin Level 0.3 NG/ML (0.5-2.0) L Height (Feet): 5 Height (Inches): 9.00 Weight (Pounds): 419 Medications Current Medications Medications (Trade) Dose Ordered Sig/Tashi Route PRN Reason Start Time Stop Time Status Last Admin Dose Admin Acetaminophen (Tylenol) 650 mg Q4HR PRN ORAL For Pain 10/05/17 06:00 11/04/17 05:59 Al Hydroxide/Mg Hydroxide (Mylanta II) 30 ml NEEDED PRN ORAL Abdominal cramps 10/05/17 05:15 11/04/17 05:14 Apixaban (Eliquis) 5 mg BID ORAL 10/05/17 09:00 11/04/17 08:59 Digoxin (Lanoxin) 0.125 mg DAILY ORAL 10/05/17 09:00 11/04/17 08:59 10/05/17 10:04 Diltiazem HCl (Cardizem CD) 120 mg DAILY ORAL 10/05/17 09:00 11/04/17 08:59 10/05/17 10:04 Diltiazem HCl (Cardizem CD) 240 mg DAILY ORAL 10/05/17 09:00 11/04/17 08:59 10/05/17 10:06 Docusate Sodium (Colace) 100 mg BID ORAL 10/05/17 09:00 11/04/17 08:59 Fenofibrate (Tricor) 54 mg DAILY ORAL 10/05/17 09:00 11/04/17 08:59 10/05/17 10:05 Fluoxetine HCl (PROzac) 20 mg DAILY ORAL 10/05/17 09:00 11/04/17 08:59 10/05/17 10:05 Hydrocortisone (Hydrocortisone) 1 applic PRN PRN TOPIC itching/body rashes 10/05/17 05:15 11/04/17 05:14 Levothyroxine Sodium (Synthroid) 125 mcg ACBREAKFAST ORAL 10/05/17 06:30 11/04/17 06:29 11/16/17 06:29 Lorazepam (Ativan) 1 mg Q6HR PRN ORAL Agitation 10/05/17 05:15 10/12/17 05:14 10/05/17 10:35 Multivitamins (Multivitamins) 1 tab DAILY ORAL 10/05/17 09:00 11/04/17 08:59 10/05/17 10:05 Nitroglycerin (Ntg) 0.4 mg NEEDED PRN SL Prn Chest Pain 10/05/17 05:15 11/04/17 05:14 Risperidone (RisperDAL) 4 mg QHS ORAL 10/05/17 21:00 11/04/17 20:59 Saccharomyces Boulardii (Florastor) 250 mg DAILY ORAL 10/05/17 09:00 11/04/17 08:59 10/05/17 10:04 Tamsulosin HCl (Flomax) 0.4 mg BEDTIME ORAL 10/05/17 21:00 11/04/17 20:59 Temazepam (Restoril) 15 mg BEDTIME PRN ORAL Insomnia 10/05/17 05:15 10/12/17 05:14 Assessment/Plan Problem List: (1) Acute encephalopathy ICD Codes: G93.40 - Encephalopathy, unspecified SNOMED: 4799177 (2) Auditory hallucination ICD Codes: R44.0 - Auditory hallucinations SNOMED: 56282978 (3) Suicidal ideations ICD Codes: R45.851 - Suicidal ideations SNOMED: 4811962, 420385428 (4) Chronic a-fib ICD Codes: I48.2 - Chronic atrial fibrillation SNOMED: 250802778 (5) HTN (hypertension) ICD Codes: I10 - Essential (primary) hypertension SNOMED: 33991269 (6) Hypothyroid ICD Codes: E03.9 - Hypothyroidism, unspecified SNOMED: 21110767 (7) HLD (hyperlipidemia) ICD Codes: E78.5 - Hyperlipidemia, unspecified SNOMED: 84889609 (8) Morbid obesity ICD Codes: E66.01 - Morbid (severe) obesity due to excess calories SNOMED: 838003527, 29851179394661 (9) BPH (benign prostatic hyperplasia) ICD Codes: N40.0 - Benign prostatic hyperplasia without lower urinary tract symptoms SNOMED: 266135362 (10) Depressed bipolar disorder ICD Codes: F31.30 - Bipolar disorder, current episode depressed, mild or moderate severity, unspecified SNOMED: 44573179 (11) NILDA (obstructive sleep apnea) ICD Codes: G47.33 - Obstructive sleep apnea (adult) (pediatric) SNOMED: 41670638 (12) History of right above knee amputation ICD Codes: Z89.611 - Acquired absence of right leg above knee SNOMED: 333132940 Status: stable Assessment/Plan Admit inpt Psych consulted 1:1 sitter ordered Monitor mental status closely Neuro checks IVFs ordered as pt not eating/drinking much given SI Cont home meds Metabolic workup was sent last admit was unremarakble Pain control, bowel regimen Supportive care PT eval Cont home meds SW consulted CM consulted for placement DVT Prophylaxis: SCD,eliquis Code Status: Full Hospital Classification Declaration: Based on this initial evaluation, and depending on the patient's clinical course, I anticipate that this patient will require hospitalization for 2-3 days for acute encephalopathy, SI, dehydration and close respiratory/hemodynamic monitoring. Disposition: Once the patient is stable to leave the hospital, I anticipate the patient will likely be discharged to the following environment: inpatient psych vs SNF I spent 70 minutes on this patient's case, and 39 minutes were dedicated to counseling and/or care coordination. Discussed with patient/family, nursing staff, SW/CM, psych regarding clinical status, treatment course, and disposition planning. Time of note may not reflect time of encounter. José Miguel Lopez M.D. Oct 05, 2017 16:02
[2017-10-05 19:58] VITALS: BP 108/72
[2017-10-05] MEDS ORDERED: Tamsulosin 0.4mg cap ORAL SCH (21:00)
[2017-10-06 03:53] VITALS: BP 119/72
[2017-10-06] MEDS: Levothyroxine 125mcg tab ORAL SCH (06:37)
[2017-10-06] MEDS: LORazepam 1mg tab ORAL PRN (06:37)
[2017-10-06 07:17] LABS: BASOPHILS % (AUTO) 0.6 % (0.0-2.0); EOSINOPHILS % (AUTO) 4.5 % (0.0-3.0); LYMPHOCYTES % (AUTO) 36.5 % (20.0-45.0); MEAN CORPUSCULAR HEMOGLOBIN 31.2 PG (27.0-31.0); MEAN CORPUSCULAR HGB CONC 32.5 G/DL (32.0-36.0); MEAN CORPUSCULAR VOLUME 96 FL (80-99); MEAN PLATELET VOLUME 5.9 FL (6.5-10.1); MONOCYTES % (AUTO) 8.2 % (1.0-10.0); NEUTROPHILS % (AUTO) 50.2 % (45.0-75.0); PLATELET COUNT 138 K/UL (150-450); RED BLOOD COUNT 4.66 M/UL (4.70-6.10); RED CELL DISTRIBUTION WIDTH 13.4 % (11.6-14.8); WHITE BLOOD COUNT 5.8 K/UL (4.8-10.8)
[2017-10-06 07:27] LABS: ANION GAP 5 mmol/L (5-15); CALCIUM 8.6 MG/DL (8.5-10.1); CARBON DIOXIDE 30 MMOL/L (21-32); CHLORIDE 107 MMOL/L (98-107); CREATININE 0.8 MG/DL (0.55-1.30); GLOMERULAR FILTRATION RATE > 60 mL/min (>60); MAGNESIUM 1.6 MG/DL (1.8-2.4); POTASSIUM 4.1 MMOL/L (3.5-5.1); SODIUM 142 MMOL/L (136-145)
[2017-10-06 07:57] VITALS: BP 147/80
[2017-10-06] MEDS: Eliquis 2.5mg tablet ORAL SCH ×2 (09:00→18:00)
[2017-10-06] MEDS: Digoxin 0.125mg tab ORAL SCH (09:08)
[2017-10-06] MEDS: Docusate 100mg cap ORAL SCH ×2 (09:08→18:00)
[2017-10-06] MEDS: dilTIAZem HCl CD 120mg cap ORAL SCH (09:09)
[2017-10-06] MEDS: dilTIAZem HCl CD 240mg cap ORAL SCH (09:11)
--- NOTE | 2017-10-06 09:11 | Consultation ---
History of Present Illness Present Illness HPI 57y/o male with pmh of Afib (on Eliquis), HTN, HLD, depression, bipolar d/o, morbid obesity, BPH, hypothyroidism. the pt has been hearing voices and stated that he wanted to end his life. Allergies: Coded Allergies: BETA-BLOCKERS (BETA-ADRENERGIC BLOC (Verified Allergy, Unknown, 09/28/17) METOPROLOL (Verified Allergy, Unknown, 09/28/17) MORPHINE (Verified Allergy, Unknown, 09/28/17) VANCOMYCIN (Verified Allergy, Unknown, 09/28/17) Medication History Scheduled Apixaban (Eliquis), 5 MG PO BID, (Reported) Digoxin* (Digoxin*), 125 MCG ORAL DAILY, (Reported) Diltiazem Hcl* (Cardizem Cd*), 360 MG ORAL DAILY, (Reported) Docusate Sodium* (Colace*), 100 MG ORAL BID, (Reported) Fenofibrate,Micronized (Fenofibrate), 54 MG ORAL DAILY, (Reported) Fluconazole (Fluconazole), 200 MG ORAL DAILY, (Reported) Fluoxetine Hcl* (Prozac*), 20 MG ORAL DAILY, (Reported) Lactobacillus Acidophilus (Acidophilus), 1 EACH PO DAILY, (Reported) Levofloxacin* (Levofloxacin*), 750 MG ORAL DAILY, (Reported) Levothyroxine Sodium* (Levothyroxine Sodium*), 125 MCG ORAL DAILY, (Reported) Metronidazole* (Flagyl*), 500 MG ORAL THREE TIMES A DAY, (Reported) Multivitamins* (Multivitamins*), 1 TAB ORAL DAILY, (Reported) Risperidone (Risperdal), 2 MG PO QHS, (Reported) Tamsulosin Hcl (Tamsulosin Hcl*), 0.4 MG ORAL BEDTIME, (Reported) Scheduled PRN Acetaminophen (Acetaminophen), 650 MG PO Q4HR PRN for Mild Pain/Temp > 100.5, ( Reported) Acetaminophen (Acetaminophen), 650 MG PO for Moderate Pain (Pain Scale 4-6), ( Reported) Al Hydroxide/mg Hydroxide (Mag-Al Liquid), 30 ML ORAL for Abdominal cramps, ( Reported) Hydrocortisone/Aloe Vera 1%* (Hydrocortisone-Aloe 1% Cream*), 1 APPLIC TOPIC for itching/body rashes, (Reported) Lorazepam* (Ativan*), 1 MG ORAL Q6HR PRN for Agitation, (Reported) Mag Hydrox/Al Hydrox/Simeth (Maalox Advanced Suspension), 30 ML PO regular strength PRN for Abdominal cramps, (Reported) Magnesium Hydroxide (Milk of Magnesia), 30 ML ORAL DAILY PRN for Constipation, ( Reported) Nitroglycerin (Nitroglycerin), 0.4 MG SL 1 tab ever 5 mins x3 PRN for Prn Chest Pain, (Reported) Temazepam* (Restoril*), 15 MG ORAL BEDTIME PRN for Insomnia, (Reported) Discontinued Medications Acetaminophen (Tylenol), 325 MG ORAL Q6H PRN for Prn Pain/Headache/Temp > 101, ( Reported) Discontinued Reason: Therapy completed Patient History History Provided By: Patient, Medical Record, PMD Healthcare decision maker Resuscitation status Advanced Directive on File Past Medical/Surgical History Past Medical/Surgical History: (1) Altered level of consciousness (2) lives at SNF (3) Auditory hallucination (4) Dehydration (5) Weakness (6) Morbid obesity (7) HTN (hypertension) (8) Hypothyroid (9) HLD (hyperlipidemia) (10) Chronic a-fib (11) BPH (benign prostatic hyperplasia) (12) Depressed bipolar disorder (13) denies tobacco, alcohol, drug use (14) from (15) Suicidal ideations (16) Acute encephalopathy (17) NILDA (obstructive sleep apnea) (18) History of right above knee amputation Review of Systems Psychiatric: Reports: prior hx, anxiety, depressed feelings, SI, hallucinations Physical Exam General Appearance: no apparent distress, alert Neurologic: alert, oriented x 3, responsive Last 24 Hour Vital Signs Date Time Temp Pulse Resp B/P (MAP) Pulse Ox O2 Delivery O2 Flow Rate FiO2 10/06/17 07:57 97.9 80 18 147/80 100 Room Air 10/06/17 05:17 70 16 98 Nasal 35 10/06/17 03:53 98.2 17 119/72 97 10/06/17 03:01 73 19 97 Nasal 35 10/06/17 01:04 66 20 98 Nasal 35 10/05/17 23:45 95 16 98 Nasal 35 10/05/17 21:11 98 16 98 Nasal 35 10/05/17 19:58 98.2 18 108/72 99 11/16/17 19:35 81 19 98 Facial 35 10/05/17 17:48 90 18 97 Facial 15.0 35 10/05/17 16:00 98.0 19 130/86 99 Room Air 10/05/17 12:00 97.8 20 138/80 98 Room Air 10/05/17 10:06 87 146/89 10/05/17 10:04 87 146/89 10/05/17 10:04 87 Laboratory Tests Test 10/06/17 05:40 White Blood Count 5.8 K/UL (4.8-10.8) Red Blood Count 4.66 M/UL (4.70-6.10) L Hemoglobin 14.5 G/DL (14.2-18.0) Hematocrit 44.7 % (42.0-52.0) Mean Corpuscular Volume 96 FL (80-99) Mean Corpuscular Hemoglobin 31.2 PG (27.0-31.0) H Mean Corpuscular Hemoglobin Concent 32.5 G/DL (32.0-36.0) Red Cell Distribution Width 13.4 % (11.6-14.8) Platelet Count 138 K/UL (150-450) L Mean Platelet Volume 5.9 FL (6.5-10.1) L Neutrophils (%) (Auto) 50.2 % (45.0-75.0) Lymphocytes (%) (Auto) 36.5 % (20.0-45.0) Monocytes (%) (Auto) 8.2 % (1.0-10.0) Eosinophils (%) (Auto) 4.5 % (0.0-3.0) H Basophils (%) (Auto) 0.6 % (0.0-2.0) Sodium Level 142 MMOL/L (136-145) Potassium Level 4.1 MMOL/L (3.5-5.1) Chloride Level 107 MMOL/L (98-107) Carbon Dioxide Level 30 MMOL/L (21-32) Anion Gap 5 mmol/L (5-15) Blood Urea Nitrogen 12 mg/dL (7-18) Creatinine 0.8 MG/DL (0.55-1.30) Estimat Glomerular Filtration Rate > 60 mL/min (>60) Glucose Level 98 MG/DL (74-106) Calcium Level 8.6 MG/DL (8.5-10.1) Magnesium Level 1.6 MG/DL (1.8-2.4) L Height (Feet): 5 Height (Inches): 9.00 Weight (Pounds): 419 Medications Current Medications Medications (Trade) Dose Ordered Sig/Tashi Route PRN Reason Start Time Stop Time Status Last Admin Dose Admin Acetaminophen (Tylenol) 650 mg Q4HR PRN ORAL For Pain 10/05/17 06:00 11/04/17 05:59 Al Hydroxide/Mg Hydroxide (Mylanta II) 30 ml NEEDED PRN ORAL Abdominal cramps 10/05/17 05:15 11/04/17 05:14 Apixaban (Eliquis) 5 mg BID ORAL 10/05/17 09:00 11/04/17 08:59 Digoxin (Lanoxin) 0.125 mg DAILY ORAL 10/05/17 09:00 11/04/17 08:59 10/05/17 10:04 Diltiazem HCl (Cardizem CD) 120 mg DAILY ORAL 10/05/17 09:00 11/04/17 08:59 10/05/17 10:04 Diltiazem HCl (Cardizem CD) 240 mg DAILY ORAL 10/05/17 09:00 11/04/17 08:59 10/05/17 10:06 Docusate Sodium (Colace) 100 mg BID ORAL 10/05/17 09:00 11/04/17 08:59 Fenofibrate (Tricor) 54 mg DAILY ORAL 10/05/17 09:00 11/04/17 08:59 10/05/17 10:05 Fluoxetine HCl (PROzac) 20 mg DAILY ORAL 10/05/17 09:00 11/04/17 08:59 10/05/17 10:05 Hydrocortisone (Hydrocortisone) 1 applic PRN PRN TOPIC itching/body rashes 10/05/17 05:15 11/04/17 05:14 10/06/17 06:48 Levothyroxine Sodium (Synthroid) 125 mcg ACBREAKFAST ORAL 10/05/17 06:30 11/04/17 06:29 10/06/17 06:37 Lorazepam (Ativan) 1 mg Q6HR PRN ORAL Agitation 10/05/17 05:15 10/12/17 05:14 10/06/17 06:37 Multivitamins (Multivitamins) 1 tab DAILY ORAL 10/05/17 09:00 11/04/17 08:59 10/05/17 10:05 Nitroglycerin (Ntg) 0.4 mg NEEDED PRN SL Prn Chest Pain 10/05/17 05:15 11/04/17 05:14 Risperidone (RisperDAL) 4 mg QHS ORAL 10/05/17 21:00 11/04/17 20:59 10/05/17 21:02 Saccharomyces Boulardii (Florastor) 250 mg DAILY ORAL 10/05/17 09:00 11/04/17 08:59 10/05/17 10:04 Tamsulosin HCl (Flomax) 0.4 mg BEDTIME ORAL 10/05/17 21:00 11/04/17 20:59 10/05/17 21:02 Temazepam (Restoril) 15 mg BEDTIME PRN ORAL Insomnia 10/05/17 05:15 10/12/17 05:14 10/05/17 21:06 Assessment/Plan Status: stable, progressing Assessment/Plan schizophrenia risperdal 3mg po qhs Jade Mcghee M.D. Oct 06, 2017 09:11
[2017-10-06 12:00] VITALS: BP 139/89
--- NOTE | 2017-10-06 13:11 | Consultation ---
History of Present Illness General Date patient seen: Oct 06, 2017 Time patient seen: 11:30 Referring physician: dr Casillas Reason for Consultation: NILDA Present Illness HPI 57y/o male with PMH of Afib (on a/coagulation), HTN, HLD, COPD. 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 At that time he was seen by psych and cleared for d/c back to SNF. Pt was noted to be increasingly depressed for the past few days, not been eating and drinking Pt reported hearing voices telling him to hurt himself , and he he was noted to be hitting himself. He denied chest pain, SOB, dizziness, palpitations, abdominal pain, f/c, n/v , d/c, Pulmonary consult was requested due to hx of NILDA patient reported using machine at night at SNF partially complaint with machine does not remember if he ever had a sleep study not sure if he stops breathing if sleeping without machine ( sleeps alone and not been told about it) no cough, no congestion, no wheezing, no chest pain no history of smoking no COPD/asthma Laboratory work stable Allergies: Coded Allergies: BETA-BLOCKERS (BETA-ADRENERGIC BLOC (Verified Allergy, Unknown, 09/28/17) METOPROLOL (Verified Allergy, Unknown, 09/28/17) MORPHINE (Verified Allergy, Unknown, 09/28/17) VANCOMYCIN (Verified Allergy, Unknown, 09/28/17) Medication History Scheduled Apixaban (Eliquis), 5 MG PO BID, (Reported) Digoxin* (Digoxin*), 125 MCG ORAL DAILY, (Reported) Diltiazem Hcl* (Cardizem Cd*), 360 MG ORAL DAILY, (Reported) Docusate Sodium* (Colace*), 100 MG ORAL BID, (Reported) Fenofibrate,Micronized (Fenofibrate), 54 MG ORAL DAILY, (Reported) Fluconazole (Fluconazole), 200 MG ORAL DAILY, (Reported) Fluoxetine Hcl* (Prozac*), 20 MG ORAL DAILY, (Reported) Lactobacillus Acidophilus (Acidophilus), 1 EACH PO DAILY, (Reported) Levofloxacin* (Levofloxacin*), 750 MG ORAL DAILY, (Reported) Levothyroxine Sodium* (Levothyroxine Sodium*), 125 MCG ORAL DAILY, (Reported) Metronidazole* (Flagyl*), 500 MG ORAL THREE TIMES A DAY, (Reported) Multivitamins* (Multivitamins*), 1 TAB ORAL DAILY, (Reported) Risperidone (Risperdal), 2 MG PO QHS, (Reported) Tamsulosin Hcl (Tamsulosin Hcl*), 0.4 MG ORAL BEDTIME, (Reported) Scheduled PRN Acetaminophen (Acetaminophen), 650 MG PO Q4HR PRN for Mild Pain/Temp > 100.5, ( Reported) Acetaminophen (Acetaminophen), 650 MG PO for Moderate Pain (Pain Scale 4-6), ( Reported) Al Hydroxide/mg Hydroxide (Mag-Al Liquid), 30 ML ORAL for Abdominal cramps, ( Reported) Hydrocortisone/Aloe Vera 1%* (Hydrocortisone-Aloe 1% Cream*), 1 APPLIC TOPIC for itching/body rashes, (Reported) Lorazepam* (Ativan*), 1 MG ORAL Q6HR PRN for Agitation, (Reported) Mag Hydrox/Al Hydrox/Simeth (Maalox Advanced Suspension), 30 ML PO regular strength PRN for Abdominal cramps, (Reported) Magnesium Hydroxide (Milk of Magnesia), 30 ML ORAL DAILY PRN for Constipation, ( Reported) Nitroglycerin (Nitroglycerin), 0.4 MG SL 1 tab ever 5 mins x3 PRN for Prn Chest Pain, (Reported) Temazepam* (Restoril*), 15 MG ORAL BEDTIME PRN for Insomnia, (Reported) Discontinued Medications Acetaminophen (Tylenol), 325 MG ORAL Q6H PRN for Prn Pain/Headache/Temp > 101, ( Reported) Discontinued Reason: Therapy completed Patient History History Provided By: Patient Healthcare decision maker Resuscitation status Advanced Directive on File Past Medical/Surgical History Past Medical/Surgical History: (1) Chronic a-fib (2) BPH (benign prostatic hyperplasia) (3) Depressed bipolar disorder (4) HTN (hypertension) (5) Hypothyroid (6) HLD (hyperlipidemia) (7) Morbid obesity (8) NILDA (obstructive sleep apnea) (9) History of right above knee amputation Review of Systems Constitutional: Reports: weakness Eye: Reports: no symptoms ENT: Reports: no symptoms Respiratory: Reports: see HPI Cardiovascular: Reports: other Gastrointestinal: Reports: constipation Genitourinary: Reports: no symptoms Musculoskeletal: Reports: other - R AKA Psychiatric: Reports: see HPI, SI, hallucinations Neurological: Reports: no symptoms Endocrine: Reports: no symptoms Hematologic/Lymphatic: Reports: no symptoms Physical Exam General Appearance: alert, morbidly obese, other - awake, alert, responsive male in NAD Lines, tubes and drains: peripheral HEENT: normocephalic, atraumatic, anicteric, mucous membranes moist, PERRL Neck: non-tender, supple Respiratory/Chest: lungs clear - with moderate air exchange Cardiovascular/Chest: normal rate, regular rhythm, no JVD Abdomen: normal bowel sounds, non tender - obese , soft Extremities: no calf tenderness, other - R AKA Neurologic: abnormal gait, alert, responsive, normal mood/affect Last 24 Hour Vital Signs Date Time Temp Pulse Resp B/P (MAP) Pulse Ox O2 Delivery O2 Flow Rate FiO2 10/06/17 09:11 80 147/80 10/06/17 09:09 80 147/80 10/06/17 09:08 80 10/06/17 07:57 97.9 80 18 147/80 100 Room Air 10/06/17 05:17 70 16 98 Nasal 35 10/06/17 03:53 98.2 17 119/72 97 10/06/17 03:01 73 19 97 Nasal 35 10/06/17 01:04 66 20 98 Nasal 35 10/05/17 23:45 95 16 98 Nasal 35 10/05/17 21:11 98 16 98 Nasal 35 10/05/17 19:58 98.2 18 108/72 99 10/05/17 19:35 81 19 98 Facial 35 10/05/17 17:48 90 18 97 Facial 15.0 35 10/05/17 16:00 98.0 19 130/86 99 Room Air Laboratory Tests Test 10/06/17 05:40 White Blood Count 5.8 K/UL (4.8-10.8) Red Blood Count 4.66 M/UL (4.70-6.10) L Hemoglobin 14.5 G/DL (14.2-18.0) Hematocrit 44.7 % (42.0-52.0) Mean Corpuscular Volume 96 FL (80-99) Mean Corpuscular Hemoglobin 31.2 PG (27.0-31.0) H Mean Corpuscular Hemoglobin Concent 32.5 G/DL (32.0-36.0) Red Cell Distribution Width 13.4 % (11.6-14.8) Platelet Count 138 K/UL (150-450) L Mean Platelet Volume 5.9 FL (6.5-10.1) L Neutrophils (%) (Auto) 50.2 % (45.0-75.0) Lymphocytes (%) (Auto) 36.5 % (20.0-45.0) Monocytes (%) (Auto) 8.2 % (1.0-10.0) Eosinophils (%) (Auto) 4.5 % (0.0-3.0) H Basophils (%) (Auto) 0.6 % (0.0-2.0) Sodium Level 142 MMOL/L (136-145) Potassium Level 4.1 MMOL/L (3.5-5.1) Chloride Level 107 MMOL/L (98-107) Carbon Dioxide Level 30 MMOL/L (21-32) Anion Gap 5 mmol/L (5-15) Blood Urea Nitrogen 12 mg/dL (7-18) Creatinine 0.8 MG/DL (0.55-1.30) Estimat Glomerular Filtration Rate > 60 mL/min (>60) Glucose Level 98 MG/DL (74-106) Calcium Level 8.6 MG/DL (8.5-10.1) Magnesium Level 1.6 MG/DL (1.8-2.4) L Height (Feet): 5 Height (Inches): 9.00 Weight (Pounds): 419 Medications Current Medications Medications (Trade) Dose Ordered Sig/Tashi Route PRN Reason Start Time Stop Time Status Last Admin Dose Admin Acetaminophen (Tylenol) 650 mg Q4HR PRN ORAL For Pain 10/05/17 06:00 11/04/17 05:59 Al Hydroxide/Mg Hydroxide (Mylanta II) 30 ml NEEDED PRN ORAL Abdominal cramps 10/05/17 05:15 11/04/17 05:14 Apixaban (Eliquis) 5 mg BID ORAL 10/05/17 09:00 11/04/17 08:59 Digoxin (Lanoxin) 0.125 mg DAILY ORAL 10/05/17 09:00 11/04/17 08:59 10/06/17 09:08 Diltiazem HCl (Cardizem CD) 120 mg DAILY ORAL 10/05/17 09:00 11/04/17 08:59 10/06/17 09:09 Diltiazem HCl (Cardizem CD) 240 mg DAILY ORAL 10/05/17 09:00 11/04/17 08:59 10/06/17 09:11 Docusate Sodium (Colace) 100 mg BID ORAL 10/05/17 09:00 11/04/17 08:59 10/06/17 09:08 Fenofibrate (Tricor) 54 mg DAILY ORAL 10/05/17 09:00 11/04/17 08:59 10/06/17 09:09 Fluoxetine HCl (PROzac) 20 mg DAILY ORAL 10/05/17 09:00 11/04/17 08:59 10/06/17 09:09 Hydrocortisone (Hydrocortisone) 1 applic PRN PRN TOPIC itching/body rashes 10/05/17 05:15 11/04/17 05:14 10/06/17 06:48 Levothyroxine Sodium (Synthroid) 125 mcg ACBREAKFAST ORAL 10/05/17 06:30 11/04/17 06:29 10/06/17 06:37 Lorazepam (Ativan) 1 mg Q6HR PRN ORAL Agitation 10/05/17 05:15 10/12/17 05:14 10/06/17 06:37 Multivitamins (Multivitamins) 1 tab DAILY ORAL 10/05/17 09:00 11/04/17 08:59 10/06/17 09:08 Nitroglycerin (Ntg) 0.4 mg NEEDED PRN SL Prn Chest Pain 10/05/17 05:15 11/04/17 05:14 Risperidone (RisperDAL) 4 mg QHS ORAL 10/05/17 21:00 11/04/17 20:59 10/05/17 21:02 Saccharomyces Boulardii (Florastor) 250 mg DAILY ORAL 10/05/17 09:00 11/04/17 08:59 10/06/17 09:10 Tamsulosin HCl (Flomax) 0.4 mg BEDTIME ORAL 10/05/17 21:00 11/04/17 20:59 10/05/17 21:02 Temazepam (Restoril) 15 mg BEDTIME PRN ORAL Insomnia 10/05/17 05:15 10/12/17 05:14 10/05/17 21:06 Assessment/Plan Assessment/Plan ASSESSMENT acute toxic mertabolci encepahlopsthy-resolved auditory and suicidal ideation chronci A fib NILDA morbid obesity HTN PVD with R AKA hyperlipdeimai hypothyroidiism PLAN OF CARE MS floor sitter 1 to 1 psych eval [facility], on isperdal home emds resumed, O2 HHn rpn CXR negative for acute cardiopulmonary pathology BiPAP at night and prn swallowe eval PTe andra and rx supportive care pain managemtn bowel regimen Pierce ([place]),Anna CALVO Oct 06, 2017 13:11
[2017-10-06 16:00] VITALS: BP 157/73
--- NOTE | 2017-10-06 17:46 | General Progress Note ---
Assessment/Plan Status: stable Status Narrative schizophrenia risperdal transfer to [facility] Subjective Neurologic/Psychiatric: Reports: anxiety, depressed, emotional problems Allergies: Coded Allergies: BETA-BLOCKERS (BETA-ADRENERGIC BLOC (Verified Allergy, Unknown, 09/28/17) METOPROLOL (Verified Allergy, Unknown, 09/28/17) MORPHINE (Verified Allergy, Unknown, 09/28/17) VANCOMYCIN (Verified Allergy, Unknown, 09/28/17) Objective Last 24 Hour Vital Signs Date Time Temp Pulse Resp B/P (MAP) Pulse Ox O2 Delivery O2 Flow Rate FiO2 10/06/17 16:00 97.9 18 157/73 100 Room Air 10/06/17 12:00 97.9 18 139/89 100 Room Air 10/06/17 09:11 80 147/80 10/06/17 09:09 80 147/80 10/06/17 09:08 80 10/06/17 07:57 97.9 80 18 147/80 100 Room Air 10/06/17 05:17 70 16 98 Nasal 35 10/06/17 03:53 98.2 17 119/72 97 10/06/17 03:01 73 19 97 Nasal 35 10/06/17 01:04 66 20 98 Nasal 35 10/05/17 23:45 95 16 98 Nasal 35 10/05/17 21:11 98 16 98 Nasal 35 10/05/17 19:58 98.2 18 108/72 99 10/05/17 19:35 81 19 98 Facial 35 10/05/17 17:48 90 18 97 Facial 15.0 35 Laboratory Tests 10/06/17 05:40: White Blood Count 5.8, Red Blood Count 4.66L, Hemoglobin 14.5, Hematocrit 44.7, Mean Corpuscular Volume 96, Mean Corpuscular Hemoglobin 31.2H, Mean Corpuscular Hemoglobin Concent 32.5, Red Cell Distribution Width 13.4, Platelet Count 138L, Mean Platelet Volume 5.9L, Neutrophils (%) (Auto) 50.2, Lymphocytes (%) (Auto) 36.5, Monocytes (%) (Auto) 8.2, Eosinophils (%) (Auto) 4.5H, Basophils (%) (Auto ) 0.6, Sodium Level 142, Potassium Level 4.1, Chloride Level 107, Carbon Dioxide Level 30, Anion Gap 5, Blood Urea Nitrogen 12, Creatinine 0.8, Estimat Glomerular Filtration Rate > 60, Glucose Level 98, Calcium Level 8.6, Magnesium Level 1.6L Height (Feet): 5 Height (Inches): 9.00 Weight (Pounds): 419 General Appearance: no apparent distress, alert, morbidly obese Neurologic: alert, oriented x 3, responsive, depressed affect Jade Mcghee M.D. Oct 06, 2017 17:46
--- NOTE | 2017-10-06 20:43 | Discharge Summary ---
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 Pt recently admitted for similar symptoms including SI. He was seen by psych and cleared for d/c back to SNF. Pt was noted to be increasingly depressed the last few days. As a results he has not been eating and drinking much. Pt states that he has been hearing voices telling him to hurt himself so he was noted to be hitting himself.. Denies f/c, n/v, d/c, chest pain, SOB, abd pain. Consultations Psychiatry, Pulmonology Hospital Course Pt was admitted and worked up for reversible causes of encephalopathy which was unremarkable. He was evaluated by psychiatry and ultimately deemed to be unsafe to discharge. He was then transferred to psychiatric facility for further evaluation. Discharge physical exam General: alert, cooperative, no distress, appears stated age, obese Head: normocephalic, without obvious abnormality, atraumatic Eyes: conjunctivae/corneas clear. PERRL, EOM's intact Throat: lips, mucosa, and tongue normal. MMM Neck: supple, symmetrical, trachea midline, and no JVD Lungs: clear to auscultation bilaterally Heart: regular rate and rhythm, S1, S2 normal, no murmur, click, rub or gallop Abdomen: soft, non-tender, non-distended, bowel sounds normal; no masses or organomegaly Extremities: extremities normal, atraumatic, no cyanosis or edema Pulses: 2+ and symmetric Skin: skin color, texture, turgor normal; no rashes or lesions Neurologic: grossly normal, no focal deficits Discharge Medications Continued Medications: Acetaminophen (Acetaminophen) 500 Mg Capsule 650 MG PO Q4HR PRN for Mild Pain/Temp > 100.5, CAP Acetaminophen (Acetaminophen) 500 Mg Capsule 650 MG PO PRN for Moderate Pain (Pain Scale 4-6), CAP Al Hydroxide/mg Hydroxide (Mag-Al Liquid) 30 Ml Oral.susp 30 ML ORAL PRN for Abdominal cramps, ML Apixaban (Eliquis) 5 Mg Tablet 5 MG PO BID, TAB Digoxin* (Digoxin*) 125 Mcg Tablet 125 MCG ORAL DAILY, TAB Diltiazem Hcl* (Cardizem Cd*) 240 Mg Cap.er.24h 360 MG ORAL DAILY, #30 CAP 0 Refills Docusate Sodium* (Colace*) 100 Mg Capsule 100 MG ORAL BID, CAP Fenofibrate,Micronized (Fenofibrate) 43 Mg Capsule 54 MG ORAL DAILY, #30 TAB 0 Refills Fluconazole (Fluconazole) 100 Mg Tablet 200 MG ORAL DAILY, #7 TAB 0 Refills Fluoxetine Hcl* (Prozac*) 20 Mg Capsule 20 MG ORAL DAILY, CAP Hydrocortisone/Aloe Vera 1%* (Hydrocortisone-Aloe 1% Cream*) Y Cr 1 APPLIC TOPIC PRN for itching/body rashes Lactobacillus Acidophilus (Acidophilus) 1 Each Tablet 1 EACH PO DAILY, TAB Levofloxacin* (Levofloxacin*) 750 Mg Tablet 750 MG ORAL DAILY, TAB Levothyroxine Sodium* (Levothyroxine Sodium*) 125 Mcg Tablet 125 MCG ORAL DAILY, TAB Take in the morning on an empty stomach, at least 30 minutes before food. Lorazepam* (Ativan*) 1 Mg Tablet 1 MG ORAL Q6HR PRN for Agitation, TAB Mag Hydrox/Al Hydrox/Simeth (Maalox Advanced Suspension) 355 Ml Oral.susp 30 ML PO regular strength PRN for Abdominal cramps, ML Magnesium Hydroxide (Milk of Magnesia) 400 Mg/5 Ml Oral.susp 30 ML ORAL DAILY PRN for Constipation, ML Metronidazole* (Flagyl*) 500 Mg Tablet 500 MG ORAL THREE TIMES A DAY, TAB 0 Refills Multivitamins* (Multivitamins*) 1 Each Tablet 1 TAB ORAL DAILY, TAB 0 Refills Nitroglycerin (Nitroglycerin) 0.4 Mg Tab.subl 0.4 MG SL 1 tab ever 5 mins x3 PRN for Prn Chest Pain, TAB Risperidone (Risperdal) 3 Mg Tablet 2 MG PO QHS, TAB Tamsulosin Hcl (Tamsulosin Hcl*) 0.4 Mg Cap.er.24h 0.4 MG ORAL BEDTIME, CAP Temazepam* (Restoril*) 15 Mg Capsule 15 MG ORAL BEDTIME PRN for Insomnia, CAP Discharge Condition Upon Discharge: stable Discharge Disposition Patient was discharged to Psychiatric Facility ([id number]) Discharge Diagnoses: (1) Acute encephalopathy (2) Auditory hallucination (3) Depressed bipolar disorder (4) NILDA (obstructive sleep apnea) (5) Hypothyroid (6) HTN (hypertension) (7) HLD (hyperlipidemia) (8) Morbid obesity (9) History of right above knee amputation José Miguel Lopez M.D. Oct 06, 2017 20:43
== END 2017-10-06 18:25 | DRG 92 ==
LOC: 4W 10-05 01:35 → 4E 10-06 17:12
DX: G92 Toxic encephalopathy (principal); R45.851 Suicidal ideations; Z89.611 Acquired absence of right leg above knee; Z68.44 Body mass index [BMI] 60.0-69.9, adult; F31.30 Bipolar disorder, current episode depressed, mild or moderate severity, unspecified; I48.2 Chronic atrial fibrillation; G47.33 Obstructive sleep apnea (adult) (pediatric); E66.01 Morbid (severe) obesity due to excess calories; E03.9 Hypothyroidism, unspecified; Z88.6 Allergy status to analgesic agent; Z88.1 Allergy status to other antibiotic agents; Z88.8 Allergy status to other drugs, medicaments and biological substances; Z79.01 Long term (current) use of anticoagulants; I10 Essential (primary) hypertension; E78.5 Hyperlipidemia, unspecified; N40.0 Benign prostatic hyperplasia without lower urinary tract symptoms; F20.9 Schizophrenia, unspecified
CPT/HCPCS: 36415; 71010; 80048; 80162; 83735; 85025; 87081; 93005; 94660